=== PATIENT | female | born 1950 | race Native Hawaiian/Other Pacific Islander ===

== ENCOUNTER → 2016-09-09 | Outpatient (CLI) | payer MEDICARE, OTHER ==
--- NOTE | 2016-09-14 11:10 | MM ---
Reason for exam: screening (asymptomatic). Last mammogram was performed 2 years and 6 months ago. History: Patient is postmenopausal. Physical Findings: A clinical breast exam by your physician is recommended on an annual basis and results should be correlated with mammographic findings. MG 3D Screening Mammo W/Cad Bilateral CC and MLO view(s) were taken. Prior study comparison: March 07, 2014, bilateral MG screening mammo w CAD. February 10, 2013, bilateral digital screening mammo w/CAD. There are scattered fibroglandular densities. There is no discrete abnormality. ASSESSMENT: Negative, BI-RAD 1 RECOMMENDATION: Routine screening mammogram of both breasts in 1 year.
== END | disposition home or self-care (01) ==
LOC: RADMAMWWP 14:35
PROVIDERS: ATTEND Family Medicine
DX: Z12.31 Encounter for screening mammogram for malignant neoplasm of breast (principal)
CPT/HCPCS: 77063; G0202

== ENCOUNTER → 2017-10-22 | Outpatient (CLI) | payer MEDICARE ==
--- NOTE | 2017-10-22 15:55 | US ---
EXAMINATION TYPE: US pelvis complete transvag DATE OF EXAM: 10/22/2017 COMPARISON: NONE CLINICAL HISTORY: R10.30 LOWER ABD PAIN. Patient stated had pelvic pain followed by course of antibio tic and no pelvic pain since. TECHNIQUE: transabdominal sonographic images of the pelvis were acquired and transvaginal sonograph ic images were medically necessary to better assess the following anatomy: myometrium and endometrium and as per physician's order. Date of LMP: mid forties EXAM MEASUREMENTS: Uterus: 5.9 x 4.5 x 2.1 cm Endometrial Stripe: 4.9mm Right Ovary: 1.4 x 1.0 x 1.0 cm Left Ovary: 1.9 x 1.1 x 1.2 cm 1. Uterus: Anteverted; multiple small Nabothian Cysts in cervix with largest = 0.4 x 0.4 x 0.3cm; fo cassidy area of calcifications in right myometrium noted mid to upper uterus = 1.6 x 1.7 x 1.3cm 2. Endometrium: thickness is wnl post menopause 3. Right Ovary: wnl 4. Left Ovary: wnl 5. Bilateral Adnexa: wnl 6. Posterior cul-de-sac: wnl IMPRESSION: 1. Echogenic calcification with posterior shadowing is present within the uterus may be related to ut erine fibroids. 2. Nabothian cysts are present.
== END | disposition home or self-care (01) ==
LOC: RADUSWWP 10:46
PROVIDERS: ATTEND Family Medicine
DX: N88.8 Other specified noninflammatory disorders of cervix uteri (principal)
CPT/HCPCS: 76830; 76856

== ENCOUNTER → 2020-05-20 | Outpatient (CLI) | payer MEDICARE ==
--- NOTE | 2020-05-22 10:24 | MM ---
Reason for exam: screening (asymptomatic). Last mammogram was performed 3 years and 8 months ago. History: Patient is postmenopausal. Physical Findings: A clinical breast exam by your physician is recommended on an annual basis and results should be correlated with mammographic findings. MG Screening Mammo w CAD Bilateral CC and MLO view(s) were taken. Prior study comparison: September 09, 2016, bilateral MG 3d screening mammo w/cad. March 07, 2014, bilateral MG screening mammo w CAD. There are scattered fibroglandular densities. 5mm right upper outer quadrant nodularity is more pronounced but appears to have been present on the 2017 3D image. A benign intramammary node is suspected. 6 month follow up recommended. ASSESSMENT: Probably benign, BI-RAD 3 RECOMMENDATION: Follow-up diagnostic mammogram of the right breast in 6 months. (3D)
== END | disposition home or self-care (01) ==
LOC: RADMAMWWP 12:20
PROVIDERS: ATTEND Family Medicine
DX: Z12.31 Encounter for screening mammogram for malignant neoplasm of breast (principal)
CPT/HCPCS: 77067

== ENCOUNTER 2020-07-09 10:43 | Day surgery (SDC) | payer MEDICARE ==
[2020-07-03 16:42] VITALS: BMI 30.7
[~2020-07-09 10:43] MED LIST: LACTATED RINGERS 1,000 ML IV SCH; LIDOCAINE 1% (10MG/ML) FOR IV START INTRADERMA PRN
[2020-07-09] MEDS ORDERED: IV FLUID CONTINUATION 200 ML IV ONE (11:02)
[2020-07-09] MEDS ORDERED: LACTATED RINGERS 1,000 ML IV ONE ×2 (11:02→11:06)
[2020-07-09 11:09] VITALS: RESP 18; TEMP 97.3
[2020-07-09] MEDS ORDERED: PROPOFOL 10 MG/ML 20 ML VIAL IV ONE (12:10)
--- NOTE | 2020-07-09 12:47 | P.PCN ---
Date of Procedure: 07/09/20 Description of Procedure: BRIEF HISTORY: Patient is a 69-year-old female presented for outpatient colonoscopy for screening for malignant neoplasm of the colon. Patient reports last colonoscopy over 10 years ago. No family history of colon cancer. No change in bowel habits or abdominal pain. PROCEDURE PERFORMED: Colonoscopy with polypectomy. PREOPERATIVE DIAGNOSIS: Screening for malignant neoplasm of the colon, last colonoscopy over 10 years ago. ESTIMATED BLOOD LOSS: Minimal. IV sedation per Anesthesia. PROCEDURE: After informed consent was obtained, the patient, was brought into the endoscopy unit. IV sedation was administered by Anesthesia under continuous monitoring. Digital rectal examination was normal. Initially the Olympus CF-190 flexible video colonoscope was then inserted in the rectum, gradually advanced into the cecum without any difficulty. Careful examination was performed as the scope was gradually being withdrawn. Ileocecal valve and the appendiceal orifice were visualized and appeared normal. Prep was excellent. Mucosa of the cecum, ascending colon, transverse colon, descending colon, sigmoid colon, and rectum appeared normal. A flat 5 mm ascending colon polyp was removed with cold snare polypectomy. 2 diminutive polyps removed with cold forcep polypectomy in the transverse colon and sigmoid colon measuring 1-2 mm in size. A few scattered diverticula noted in the left colon. Retroflexion was performed in the rectum and no lesions were seen, low-grade internal hemorrhoids. The patient tolerated the procedure well. IMPRESSION: Flat descending colon polyp removed with cold snare polypectomy. Diminutive polyps removed from the sigmoid colon and transverse colon with cold forcep polypectomy. RECOMMENDATIONS: Findings of this examination were discussed with the patient and her family. Okay to resume diet. Okay to resume medications. Await pathology from polyp. Recommend repeat colonoscopy in 5 years pending pathology from polypectomy for history of colon polyps.
[2020-07-09 13:13] VITALS: BP 143/84; PULSE 78
== END 2020-07-09 13:59 | disposition home or self-care (01) ==
LOC: ORWHC2ENDO 10:43
PROVIDERS: ATTEND Internal Medicine
DX: Z12.11 Encounter for screening for malignant neoplasm of colon (principal); D12.2 Benign neoplasm of ascending colon; D12.3 Benign neoplasm of transverse colon; K63.5 Polyp of colon; K21.9 Gastro-esophageal reflux disease without esophagitis; E07.9 Disorder of thyroid, unspecified; Z79.899 Other long term (current) drug therapy
CPT/HCPCS: 88305; 45380; 45385; J2704

== ENCOUNTER → 2020-11-20 | Outpatient (CLI) | payer MEDICARE ==
--- NOTE | 2020-11-20 14:23 | MM ---
Reason for exam: follow-up at short interval from prior study. Last mammogram was performed 6 months ago. History: Patient is postmenopausal. Took hormonal contraceptives for 6 months. Physical Findings: Nurse did not find any significant physical abnormalities on exam. MG Diagnostic Mammo RT w CAD CC and MLO view(s) were taken of the right breast. Prior study comparison: May 20, 2020, bilateral MG screening mammo w CAD. September 09, 2016, bilateral MG 3d screening mammo w/cad. March 07, 2014, bilateral MG screening mammo w CAD. There are scattered fibroglandular densities. Previous mammotome biopsy in the right breast, less dense, no internal growth. These results were verbally communicated with the patient and result sheet given to the patient on 11/20/20. ASSESSMENT: Benign, BI-RAD 2 RECOMMENDATION: Return to routine screening mammogram schedule for both breasts. Back on schedule.
== END | disposition home or self-care (01) ==
LOC: RADMAMWWP 12:59
PROVIDERS: ATTEND Family Medicine
DX: R92.8 Other abnormal and inconclusive findings on diagnostic imaging of breast (principal)
CPT/HCPCS: 77065

== ENCOUNTER → 2022-06-17 | Outpatient (CLI) | payer MEDICARE ==
--- NOTE | 2022-06-18 09:30 | MM ---
Reason for Exam: Screening (asymptomatic). Last mammogram was performed 2 year(s) and 1 month(s) ago. Patient History: Menarche at age 11. First Full-Term at age 22. Postmenopausal. Hormonal Contraceptives for 6 months. Risk Values: Carol 5 year model risk: 1.1%. NCI Lifetime model risk: 2.8%. Prior Study Comparison: 09/09/2016 Bilateral Screening Mammogram, [facility]. 05/20/2020 Bilateral Screening Mammogram, [facility]. 11/20/2020 Right Diagnostic Mammogram, [facility]. Tissue Density: There are scattered fibroglandular densities. Findings: Analyzed By CAD. Benign-appearing bilateral axillary lymph nodes are redemonstrated. There is no suspicious group of microcalcifications or new suspicious mass in either breast. Overall Assessment: Negative, BI-RAD 1 Management: Screening Mammogram of both breasts in 1 year. . Patient should continue monthly self-breast exams. A clinical breast exam by your physician is recommended on an annual basis. This exam should not preclude additional follow-up of suspicious palpable abnormalities. Note on Carol scores and lifetime risk: 1. A Carol score greater than 3% is considered moderate risk. If this is the case, consider specialist referral to assess eligibility for a risk reducing agent. 2. If overall lifetime risk for the development of breast cancer is 20% or higher, the patient may qualify for future screening with alternating mammogram and breast MRI. Electronically signed and approved by: Dontrell Sumner M.D.
== END | disposition home or self-care (01) ==
LOC: RADMAMWWP 08:41
PROVIDERS: ATTEND Family Medicine
DX: Z12.31 Encounter for screening mammogram for malignant neoplasm of breast (principal); Z78.0 Asymptomatic menopausal state
CPT/HCPCS: 77063; 77067

== ENCOUNTER → 2023-06-29 | Outpatient (CLI) | payer MEDICARE ==
--- NOTE | 2023-07-06 11:07 | MM ---
Reason for Exam: Screening (asymptomatic). Last screening mammogram was performed 12 month(s) ago. Patient History: Menarche at age 11. First Full-Term at age 22. Postmenopausal. Hormonal Contraceptives for 6 months. Risk Values: Carol 5 year model risk: 1.0%. NCI Lifetime model risk: 2.6%. Prior Study Comparison: 05/20/2020 Bilateral Screening Mammogram, [facility]. 11/20/2020 Right Diagnostic Mammogram, [facility]. 06/17/2022 Bilateral MG 3D screening mammo w/cad, [facility]. Tissue Density: The breasts are heterogeneously dense, which may obscure small masses. Findings: Analyzed By CAD. There is no suspicious group of microcalcifications or new suspicious mass in either breast. Benign-appearing lymph nodes in the axilla are stable. Overall Assessment: Benign, BI-RAD 2 Management: Screening Mammogram of both breasts in 1 year. . Patient should continue monthly self-breast exams. A clinical breast exam by your physician is recommended on an annual basis. This exam should not preclude additional follow-up of suspicious palpable abnormalities. Note on Carol scores and lifetime risk: 1. A Carol score greater than 3% is considered moderate risk. If this is the case, consider specialist referral to assess eligibility for a risk reducing agent. 2. If overall lifetime risk for the development of breast cancer is 20% or higher, the patient may qualify for future screening with alternating mammogram and breast MRI. Electronically signed and approved by: Amadeo Hanna M.D. Radiologis
== END | disposition home or self-care (01) ==
LOC: RADMAMWWP 11:57
PROVIDERS: ATTEND Family Medicine
DX: Z12.31 Encounter for screening mammogram for malignant neoplasm of breast (principal); Z78.0 Asymptomatic menopausal state
CPT/HCPCS: 77063; 77067

== ENCOUNTER → 2023-11-24 | Outpatient (CLI) | payer MEDICARE ==
--- NOTE | 2023-11-24 14:35 | US ---
EXAMINATION TYPE: US kidneys/renal and bladder DATE OF EXAM: 11/24/2023 COMPARISON: NONE CLINICAL INDICATION: Female, 72 years old with history of R31.1 MICROHEMATURIA; Microscopic hematuria TECHNIQUE: Grayscale and color Doppler imaging of the bilateral kidneys and urinary bladder: FINDINGS: EXAM MEASUREMENTS: Right Kidney: 9.6 x 5.6 x 5.0 cm Left Kidney: 10.1 x 4.9 x 4.6 cm Right Kidney: wnl, no evidence of hydro Left Kidney: wnl, no evidence of hydro Bladder: wnl Bilateral Jets seen: Yes There is no evidence for hydronephrosis at this point in time. No nephrolithiasis is seen. Cortical medullary differentiation is maintained. No masses are identified. The urinary bladder is anechoic. Bilateral ureteral jets are seen. IMPRESSION: No hydronephrosis or nephrolithiasis. [facility], , 11/24/2023 2:33 PM
== END | disposition home or self-care (01) ==
LOC: RADUSWWP 13:26
PROVIDERS: ATTEND Urology
DX: R31.1 Benign essential microscopic hematuria (principal)
CPT/HCPCS: 76770

== ENCOUNTER → 2023-12-24 | Outpatient (CLI) | payer MEDICARE ==
--- NOTE | 2023-12-26 22:20 | BD ---
EXAMINATION TYPE: Axial Bone Density DATE OF EXAM: 12/24/2023 CLINICAL HISTORY: 73 years old Female. ICD-10 CODE: Z78.0 ASYMPTOMATIC MENOPAUSAL STATE , Additional History: Height: 60.5"` Weight: 177lbs FRAX RISK QUESTIONS: Alcohol (3 or more units per day): No Family History (Parent hip fracture): No Glucocorticoids (More than 3mos): No (Ex: prednisone, prednisolone, methylprednisolone, dexamethasone, and hydrocortisone). History of Fracture in Adulthood: No Secondary Osteoporosis: No 1. Type 1 Diabetes: No 2. Hyperthyroidism: No 3. Menopause before 45: Unknown 4. Malnutrition: No 5. Chronic liver disease: No Rheumatoid Arthritis: No Current Tobacco Use: No RISK FACTORS HISTORY OF: Hip Fracture (Right/Left): No Spine Fracture: No History of Wrist Fracture: No Surgery to Spine/Hip(right/left)/Wrist (right/left): No MEDICATIONS: Thyroid Medications: Yes Which medication: Synthroid How Long: Over 10 years Osteoporosis Medications: No EXAM MEASUREMENTS: Bone mineral densitometry was performed using the [employer]ambo System. Bone mineral density as measured about the Lumbar spine is: ----- L1-L4(G/cm2): 1.016 T Score Values are as follows: ----- L1: -1.1 ----- L2: -2.0 ----- L3: -0.7 ----- L4: -1.8 ----- L1-L4: -1.4 Z Score Values are as follows: ----- L1: 0.1 ----- L2: -0.8 ----- L3: 0.5 ----- L4: -0.5 ----- L1-L4: -0.1 Baseline @ [facility] Bone mineral density about the R hip (g/cm2): 0.794 Bone mineral density about the L hip (g/cm2): 0.762 T Score values are as follows: -----R Neck: -2.1 -----L Neck: -2.6 -----R Total: -1.7 -----L Total: -1.9 Z Score values are as follows: -----R Neck: -0.5 -----L Neck: -1.0 -----R Total: -0.4 -----L Total: -0.6 Baseline @ [facility] FRAX%s: The graph provided illustrates a 9.2% chance for a major osteoporotic fx and a 2.7% chance fo r the hips probability for fx in 10 years time. IMPRESSION: Osteoporosis (T Score less than -2.5). There is increased fracture risk and therapy is usually indicated based on age. Re-Screen 1-2 years. NOTE: T-SCORE=SD OF THE YOUNG ADULT MEAN. [facility], , 12/26/2023 10:17 PM
== END | disposition home or self-care (01) ==
LOC: RADBDWWP 10:06
PROVIDERS: ATTEND Family Medicine
DX: M81.0 Age-related osteoporosis without current pathological fracture (principal); Z78.0 Asymptomatic menopausal state
CPT/HCPCS: 77080

== ENCOUNTER → 2024-06-29 | Outpatient (CLI) | payer MEDICARE ==
--- NOTE | 2024-06-29 12:38 | MM ---
Reason for Exam: Screening (asymptomatic). Last screening mammogram was performed 12 month(s) ago. Patient History: Menarche at age 11. First Full-Term at age 22. Postmenopausal. Hormonal Contraceptives for 6 months. Risk Values: Carol 5 year model risk: 1.0%. NCI Lifetime model risk: 2.4%. Prior Study Comparison: 11/20/2020 Right Diagnostic Mammogram, [facility]. 06/17/2022 Bilateral MG 3D screening mammo w/cad, [facility]. 06/29/2023 Bilateral MG 3D screening mammo w/cad, [facility]. Tissue Density: There are scattered areas of fibroglandular density. Findings: Analyzed By CAD. Right breast: Stable right upper outer quadrant lymph node. There is no suspicious group of microcalcifications or new suspicious mass. Left breast: There is no suspicious group of microcalcifications or new suspicious mass. Overall Assessment: Negative, BI-RAD 1 Management: Screening Mammogram of both breasts in [address] [facility] will attempt to contact patient to return for supplemental views and ultrasound if indicated. Patient should continue monthly self-breast exams. A clinical breast exam by your physician is recommended on an annual basis. This exam should not preclude additional follow-up of suspicious palpable abnormalities. Note on Carol scores and lifetime risk: 1. A Carol score greater than 3% is considered moderate risk. If this is the case, consider specialist referral to assess eligibility for a risk reducing agent. 2. If overall lifetime risk for the development of breast cancer is 20% or higher, the patient may qualify for future screening with alternating mammogram and breast MRI. [facility], , 06/29/2024 12:36 PM. Electronically signed and approved by: Ivan Hernández DO
== END | disposition home or self-care (01) ==
LOC: RADMAMWWP 11:00
PROVIDERS: ATTEND Family Medicine
DX: Z12.31 Encounter for screening mammogram for malignant neoplasm of breast (principal); R92.323 Mammographic fibroglandular density, bilateral breasts; Z78.0 Asymptomatic menopausal state; Z92.0 Personal history of contraception
CPT/HCPCS: 77063; 77067